=== PATIENT | male | born 1970 | race Caucasian/White ===

== ENCOUNTER 2018-03-06 13:22 | Emergency (ER) | payer OTHER | END 2018-03-06 17:23 | disposition other institution (70) | LOC: ED 13:22 | DX: Z02.89 Encounter for other administrative examinations (principal) ==

== ENCOUNTER 2018-03-06 13:22 | Emergency (ER) | payer OTHER ==
[~2018-03-06] VITALS: Ht 185.4 cm; Wt 120.2 kg
[2018-03-06 13:25] VITALS: Ht 185.4 cm; Wt 120.2 kg
[2018-03-06 14:59] LABS: CALCIUM 8.7 mg/dL (8.5-10.1); CARBON DIOXIDE 27.8 mmol/L (21-32); CHLORIDE SERUM 91 mmol/L (98-107); CREATININE SERUM 1.1 mg/dL (0.7-1.3); GFR1 > 60 mL/min; POTASSIUM SERUM 4.4 mmol/L (3.5-5.1)
[2018-03-06 15:03] LABS: SODIUM SERUM 122 mmol/L (136-145)
[2018-03-06 15:04] LABS: GLUCOSE SERUM 595 mg/dL (74-106)
[2018-03-06 17:23] VITALS: BP 140/77
== END 2018-03-06 17:23 | disposition other institution (70) ==
LOC: ED 13:22
PROVIDERS: Emergency Medicine
DX: E11.65 Type 2 diabetes mellitus with hyperglycemia (principal); J45.909 Unspecified asthma, uncomplicated
CPT/HCPCS: 82962; J1815; J7030

== ENCOUNTER 2018-03-08 19:41 | Emergency (ER) | payer OTHER ==
[~2018-03-08] VITALS: Ht 185.4 cm; Wt 113.4 kg
[2018-03-08 19:50] VITALS: Ht 185.4 cm; Wt 113.4 kg
[2018-03-08 21:15] LABS: BASOPHIL % 0.5 % (0-2); PLATELET COUNT 243 x10^3mcL (130-400); RED CELL DISTRIBUTION WIDTH 12.9 % (11.5-14.5)
[2018-03-08 21:21] LABS: CALCIUM 8.3 mg/dL (8.5-10.1); CHLORIDE SERUM 95 mmol/L (98-107); CREATININE SERUM 0.8 mg/dL (0.7-1.3); GFR1 > 60 mL/min; GLUCOSE SERUM 380 mg/dL (74-106); POTASSIUM SERUM 3.9 mmol/L (3.5-5.1); SODIUM SERUM 130 mmol/L (136-145)
[2018-03-08] MEDS ORDERED: LANTUS SOLOS100 U/M1 SQ ×2 (21:21→21:22)
[2018-03-08] MEDS ORDERED: METFORMIN HYDR500 M1 PO (21:21)
[2018-03-08 21:26] LABS: ALBUMIN 3.4 g/dL (3.4-5.0); ALKALINE PHOSPHATASE 73 U/L (46-116); ALT/SGPT 28 U/L (16-63); AST/SGOT 13 U/L (15-37); BILIRUBIN TOTAL 0.4 mg/dL (0.20-1.00); TOTAL PROTEIN, SERUM 6.6 g/dL (6.4-8.2)
[2018-03-08 21:41] LABS: AMPHETAMINE QUAL UR NONE DETECTED (See below)
[2018-03-08 23:19] VITALS: BP 155/80
== END 2018-03-08 23:19 | disposition home or self-care (01) ==
LOC: ED 19:41
PROVIDERS: Emergency Medicine
DX: E11.65 Type 2 diabetes mellitus with hyperglycemia (principal); R55 Syncope and collapse; J45.909 Unspecified asthma, uncomplicated
CPT/HCPCS: 36415; 82962; 83880; Q0092

== ENCOUNTER 2020-09-14 15:13 | Inpatient (IN) | payer OTHER, SELFPAY ==
[~2020-09-14] VITALS: Ht 185.4 cm; Wt 120.7 kg
[~2020-09-14 15:13] MED LIST: LANTUS SOLOS100 U/M1 SQ; METFORMIN HYDR500 M1 PO
[2020-09-14 16:13] LABS: BASOPHIL % 0.9 % (0.2-1.5); PLATELET COUNT 377 x10^3mcL (152-348); RED CELL DISTRIBUTION WIDTH 13.2 % (12.1-16.2)
[2020-09-14 17:04] LABS: CALCIUM 9.1 mg/dL (8.5-10.1); CARBON DIOXIDE 33.6 mmol/L (21-32); CHLORIDE SERUM 97 mmol/L (98-107); CREATININE SERUM 0.9 mg/dL (0.7-1.3); GFR1 > 60 mL/min; GLUCOSE SERUM 197 mg/dL (74-106); SODIUM SERUM 134 mmol/L (136-145)
[2020-09-14 17:08] LABS: ALBUMIN 3.4 g/dL (3.4-5.0); ALKALINE PHOSPHATASE 94 U/L (46-116); ALT/SGPT 40 U/L (16-63); AST/SGOT 18 U/L (15-37); BILIRUBIN TOTAL 0.3 mg/dL (0.20-1.00); CHOLESTEROL 160 mg/dL (<200); HDL CHOLESTEROL 35 mg/dL (40-60); LIPASE 67 IU/L (73-393); MAGNESIUM 2.1 mg/dL (1.8-2.4)
[2020-09-14 19:17] LABS: microscopic required? NO
[2020-09-14 19:23] LABS: UA SPECIFIC GRAVITY 1.015 (1.005-1.035); urine erythrocyte NEGATIVE (NEGATIVE)
[2020-09-14 21:31] VITALS: BP 137/92
[2020-09-14 21:33] VITALS: Ht 185.4 cm; Wt 120.7 kg
[2020-09-15 00:37] VITALS: BP 124/70
[2020-09-15 05:11] VITALS: BP 121/82
[2020-09-15 06:39] LABS: BASOPHIL % 0.3 % (0.2-1.5); RED CELL DISTRIBUTION WIDTH 13.2 % (12.1-16.2)
[2020-09-15 07:13] LABS: ALBUMIN 2.9 g/dL (3.4-5.0); ALKALINE PHOSPHATASE 79 U/L (46-116); ALT/SGPT 31 U/L (16-63); AST/SGOT 13 U/L (15-37); BILIRUBIN TOTAL 0.3 mg/dL (0.20-1.00); CALCIUM 8.4 mg/dL (8.5-10.1); CARBON DIOXIDE 33.9 mmol/L (21-32); CHLORIDE SERUM 100 mmol/L (98-107); CREATININE SERUM 0.9 mg/dL (0.7-1.3); GFR1 > 60 mL/min; GLUCOSE SERUM 127 mg/dL (74-106); MAGNESIUM 1.9 mg/dL (1.8-2.4); POTASSIUM SERUM 4.1 mmol/L (3.5-5.1); SODIUM SERUM 136 mmol/L (136-145); TOTAL PROTEIN, SERUM 6.8 g/dL (6.4-8.2)
[2020-09-15 07:21] LABS: PLATELET COUNT 353 x10^3mcL (152-348)
[2020-09-15 08:39] VITALS: BP 121/84
[2020-09-15 12:38] VITALS: BP 150/87
[2020-09-15 17:39] VITALS: BP 133/84
[2020-09-15 20:08] VITALS: BP 118/72
[2020-09-16 05:10] VITALS: BP 116/76
[2020-09-16 06:47] LABS: BASOPHIL % 0.9 % (0.2-1.5); PLATELET COUNT 365 x10^3mcL (152-348); RED CELL DISTRIBUTION WIDTH 12.9 % (12.1-16.2)
[2020-09-16 07:14] LABS: ALKALINE PHOSPHATASE 76 U/L (46-116); ALT/SGPT 34 U/L (16-63); AST/SGOT 10 U/L (15-37); BILIRUBIN TOTAL 0.36 mg/dL (0.20-1.00); CALCIUM 8.7 mg/dL (8.5-10.1); CARBON DIOXIDE 26.6 mmol/L (21-32); CHLORIDE SERUM 99 mmol/L (98-107); GFR1 > 60 mL/min; GLUCOSE SERUM 177 mg/dL (74-106); MAGNESIUM 1.8 mg/dL (1.8-2.4); POTASSIUM SERUM 4.1 mmol/L (3.5-5.1); SODIUM SERUM 136 mmol/L (136-145); TOTAL PROTEIN, SERUM 7.2 g/dL (6.4-8.2)
[2020-09-16 08:40] VITALS: BP 126/88
[2020-09-16 12:18] VITALS: BP 131/92
[2020-09-16 16:55] VITALS: BP 110/79
[2020-09-16 20:02] VITALS: BP 125/66
[2020-09-17 05:39] VITALS: BP 129/67
[2020-09-17 06:35] LABS: BASOPHIL % 0.9 % (0.2-1.5); PLATELET COUNT 361 x10^3mcL (152-348); RED CELL DISTRIBUTION WIDTH 12.9 % (12.1-16.2)
[2020-09-17 06:49] LABS: ALKALINE PHOSPHATASE 68 U/L (46-116); ALT/SGPT 33 U/L (16-63); AST/SGOT 15 U/L (15-37); BILIRUBIN TOTAL 0.3 mg/dL (0.20-1.00); CALCIUM 8.6 mg/dL (8.5-10.1); CARBON DIOXIDE 24.6 mmol/L (21-32); CHLORIDE SERUM 100 mmol/L (98-107); CREATININE SERUM 0.9 mg/dL (0.7-1.3); GFR1 > 60 mL/min; GLUCOSE SERUM 167 mg/dL (74-106); MAGNESIUM 1.8 mg/dL (1.8-2.4); POTASSIUM SERUM 4.1 mmol/L (3.5-5.1); SODIUM SERUM 133 mmol/L (136-145); TOTAL PROTEIN, SERUM 6.7 g/dL (6.4-8.2)
[2020-09-17 07:08] LABS: ALBUMIN 2.9 g/dL (3.4-5.0)
[2020-09-17 08:07] VITALS: BP 117/76
[2020-09-17] MEDS ORDERED: AUGMENTIN 875-1 EACH PO (11:23)
[2020-09-17 11:46] VITALS: BP 117/76
[2020-09-17] MEDS ORDERED: LANTUS SOLOS100 U/M1 SQ (11:46)
[2020-09-17 11:56] VITALS: BP 120/70
== END 2020-09-17 12:16 | disposition home or self-care (01) | DRG 383 ==
LOC: ED 15:13 → DU 19:03 → MU 19:03 → DU 21:02 → MU 09-16 17:45
PROVIDERS: Emergency Medicine; ADMIT Hospitalist; ATTEND Internal Medicine
DX: L03.115 Cellulitis of right lower limb (principal); E11.65 Type 2 diabetes mellitus with hyperglycemia; F17.210 Nicotine dependence, cigarettes, uncomplicated; J45.909 Unspecified asthma, uncomplicated; Z20.822 Contact with and (suspected) exposure to COVID-19; I10 Essential (primary) hypertension; L02.415 Cutaneous abscess of right lower limb; Z83.3 Family history of diabetes mellitus; Z79.4 Long term (current) use of insulin; Z79.899 Other long term (current) drug therapy
CPT/HCPCS: 36600; 83880; 85378; 97116-GP; G0378; J0295; J1644; J2543; J3490; J7030; Q9967; U0003